=== PATIENT | male | born 1970 | race African-American/Black ===

== ENCOUNTER 2022-07-18 12:46 | Emergency (ER) | payer OTHER ==
[~2022-07-18] VITALS: Ht 180.3 cm; Wt 81.6 kg
[2022-07-18] MEDS ORDERED: COZAAR25 MG PO (13:45)
== END 2022-07-18 16:36 | disposition home or self-care (01) ==
LOC: ER 12:46
DX: S91.342A Puncture wound with foreign body, left foot, initial encounter (principal); B96.6 Bacteroides fragilis [B. fragilis] as the cause of diseases classified elsewhere; W26.0XXA Contact with knife, initial encounter; Y93.89 Activity, other specified; Y92.89 Other specified places as the place of occurrence of the external cause; Z91.013 Allergy to seafood